=== PATIENT | female | born 1980 | race Caucasian/White ===

== ENCOUNTER 2022-06-23 13:26 | Outpatient (REF) | payer MEDICAID, SELFPAY ==
[2022-06-23 15:25] LABS: HGB 14.3 g/dL (11.2-15.7); MCH 30.1 pg (27.0-33.0); MCV 88 fL (80-95); MPV 11.2 fL (8.0-11.0); Platelet Count 208 10^3/uL (130-400); RBC 4.75 10^6/uL (3.93-5.22); RDW 11.6 % (11.7-14.6); WBC 6.84 10^3/uL (4.4-10.8)
[2022-06-23 16:09] LABS: ALT 29 U/L (14-59); AST 26 U/L (15-37); Albumin 4.2 g/dL (3.4-5.0); Alkaline Phosphatase 79 U/L (46-116); Anion Gap 8.1 mmol/L (3-11); BUN 19 mg/dL (7-18); Bilirubin, Total 0.6 mg/dL (0.2-1.0); CO2 27.9 mmol/L (21.0-32.0); CREATININE 0.7 mg/dL (0.55-1.02); Calcium 8.9 mg/dL (8.5-10.1); Calculated LDL 98 mg/dL (<100); Chloride 103 mmol/L (98-107); Cholesterol 191 mg/dL (<200); Glucose 151 mg/dL (74-106); HDL Cholesterol 62 mg/dL (40-60); Potassium 4.4 mmol/L (3.5-5.1); Sodium 139 mmol/L (136-145); Total Protein 7.7 g/dL (6.4-8.2); Triglyceride 157 mg/dL (<150)
== END 2022-06-23 13:27 | disposition home or self-care (01) ==
LOC: NCHCN 13:26
PROVIDERS: PCP Family Medicine; Visit Provider Family Medicine
DX: Z13.29 Encounter for screening for other suspected endocrine disorder (principal); Z13.220 Encounter for screening for lipoid disorders; Z00.00 Encounter for general adult medical examination without abnormal findings; Z13.0 Encounter for screening for diseases of the blood and blood-forming organs and certain disorders involving the immune mechanism; Z13.228 Encounter for screening for other metabolic disorders
CPT/HCPCS: 80053; 80061; 85027; 84443

== ENCOUNTER 2023-02-20 17:43 | Outpatient (REF) | payer SELFPAY ==
[2023-02-20 21:25] LABS: Abs Immature Grans 0.02 10^3/uL (0.0-0.06); Absolute Basophil Count 0.08 10^3/uL (0.0-0.2); Absolute Eosinophil Count 0.16 10^3/uL (0.0-0.7); Absolute Lymphocyte Count 3.02 10^3/uL (1.2-3.4); Absolute Monocyte Count 0.49 10^3/uL (0.1-0.8); Absolute Neutrophil Count 3.32 10^3/uL (1.2-6.7); Basophils % 1.1; Eosinophils % 2.3; HCT 39.8 % (36.0-46.0); HGB 13.9 g/dL (11.2-15.7); Immature Grans % 0.3; Lymphocytes % 42.6; MCH 30.2 pg (27.0-33.0); MCHC 34.9 % (32.0-36.0); MCV 86 fL (80-95); MPV 11.5 fL (8.0-11.0); Monocytes % 6.9; Neutrophils % 46.8; Platelet Count 216 10^3/uL (130-400); RBC 4.61 10^6/uL (3.93-5.22); RDW 11.7 % (11.7-14.6); RDW-SD 36.9 fL; WBC 7.09 10^3/uL (4.4-10.8)
[2023-02-20 21:47] LABS: ALT 31 U/L (14-59); AST 17 U/L (15-37); Alkaline Phosphatase 88 U/L (46-116); Anion Gap 9.1 mmol/L (3-11); BUN 17 mg/dL (7-18); Bilirubin, Total 0.4 mg/dL (0.2-1.0); CO2 26.9 mmol/L (21.0-32.0); CREATININE 0.9 mg/dL (0.55-1.02); Calcium 9.4 mg/dL (8.5-10.1); Chloride 98 mmol/L (98-107); Estimated GFR 80.84 (mL/min/1.73m2); Glucose 275 mg/dL (74-106); Potassium 3.8 mmol/L (3.5-5.1); Sodium 134 mmol/L (136-145); TSH (W/Ref FT4) 1.65 uIU/mL (0.36-3.74); Total Protein 7.8 g/dL (6.4-8.2)
[2023-02-20 22:09] LABS: Hemoglobin A1C 8.4 % (<5.7)
[2023-02-20 22:23] LABS: COMMENT (LAB VIEW ONLY) 50.03 mg/dL; Microalb ug/mg Crea 5.8 ug/mg Cr
== END 2023-02-20 17:44 | disposition home or self-care (01) ==
LOC: NCHCN 17:43
PROVIDERS: PCP Family Medicine; Visit Provider Family Medicine
DX: Z00.00 Encounter for general adult medical examination without abnormal findings (principal); E11.9 Type 2 diabetes mellitus without complications; Z13.29 Encounter for screening for other suspected endocrine disorder
CPT/HCPCS: 80053; 82043; 82570; 83036; 84443; 85025

== ENCOUNTER 2024-07-28 15:15 | Outpatient (REF) | payer OTHER, SELFPAY ==
[2024-07-28 21:30] LABS: ALT 54 U/L (14-59); AST 30 U/L (15-37); Albumin 3.9 g/dL (3.4-5.0); Alkaline Phosphatase 129 U/L (46-116); Anion Gap 10.8 mmol/L (3-11); BUN 13 mg/dL (7-18); Bilirubin, Total 0.38 mg/dL (0.2-1.0); CO2 27.2 mmol/L (21.0-32.0); Calcium 9.6 mg/dL (8.5-10.1); Chloride 101 mmol/L (98-107); Estimated GFR 70.36 (mL/min/1.73m2); Glucose 381 mg/dL (74-106); Potassium 4.8 mmol/L (3.5-5.1); Sodium 139 mmol/L (136-145); Total Protein 8.2 g/dL (6.4-8.2)
== END 2024-07-28 15:16 | disposition home or self-care (01) ==
LOC: NCHCN 15:15
PROVIDERS: PCP Family Medicine; Visit Provider Family Medicine
DX: E11.9 Type 2 diabetes mellitus without complications (principal)
CPT/HCPCS: 80053

== ENCOUNTER 2024-09-08 12:36 | Outpatient (REF) | payer OTHER, SELFPAY ==
[2024-09-08 15:19] LABS: Abs Immature Grans 0.01 10^3/uL (0.0-0.06); Absolute Basophil Count 0.06 10^3/uL (0.0-0.2); Absolute Eosinophil Count 0.18 10^3/uL (0.0-0.7); Absolute Lymphocyte Count 2.51 10^3/uL (1.2-3.4); Absolute Monocyte Count 0.32 10^3/uL (0.1-0.8); Absolute Neutrophil Count 2.57 10^3/uL (1.2-6.7); Basophils % 1.1 %; Eosinophils % 3.2 %; HGB 15.3 g/dL (11.2-15.7); Immature Grans % 0.2 %; Lymphocytes % 44.4 %; MCH 29.7 pg (27.0-33.0); MCHC 34.8 % (32.0-36.0); MCV 85 fL (80-95); MPV 11.2 fL (8.0-11.0); Monocytes % 5.7 %; Neutrophils % 45.4 %; Platelet Count 207 10^3/uL (130-400); RBC 5.15 10^6/uL (3.93-5.22); RDW 11.8 % (11.7-14.6); RDW-SD 36.2 fL; WBC 5.65 10^3/uL (4.4-10.8)
[2024-09-08 16:10] LABS: ALT 52 U/L (14-59); AST 24 U/L (15-37); Albumin 4.4 g/dL (3.4-5.0); Alkaline Phosphatase 91 U/L (46-116); Anion Gap 11.1 mmol/L (3-11); BUN 10 mg/dL (7-18); Bilirubin, Total 0.6 mg/dL (0.2-1.0); CO2 25.9 mmol/L (21.0-32.0); CREATININE 0.7 mg/dL (0.55-1.02); Calcium 9.9 mg/dL (8.5-10.1); Calculated LDL 144 mg/dL (<100); Chloride 101 mmol/L (98-107); Cholesterol 265 mg/dL (<200); Estimated GFR 107.95 (mL/min/1.73m2); Glucose 335 mg/dL (74-106); HDL Cholesterol 71 mg/dL (>or=50); Potassium 4.4 mmol/L (3.5-5.1); Sodium 138 mmol/L (136-145); Total Protein 8.1 g/dL (6.4-8.2); Triglyceride 252 mg/dL (<150)
[2024-09-08 17:06] LABS: COMMENT (LAB VIEW ONLY) 96.01 mg/dL; Microalb ug/mg Crea 28.4 ug/mg Cr
== END 2024-09-08 12:37 | disposition home or self-care (01) ==
LOC: NCHCN 12:36
PROVIDERS: PCP Family Medicine; Visit Provider Family Medicine
DX: R53.83 Other fatigue (principal); Z13.220 Encounter for screening for lipoid disorders; E11.9 Type 2 diabetes mellitus without complications
CPT/HCPCS: 80053; 80061; 82043; 82570; 84443; 85025

== ENCOUNTER 2025-04-01 12:02 | Outpatient (REF) | payer BC, MEDICAID, SELFPAY | END 2025-04-01 12:03 | disposition home or self-care (01) | LOC: NCHCN 12:02 | PROVIDERS: PCP Family Medicine; Visit Provider Family Medicine | DX: R30.0 Dysuria (principal) | CPT/HCPCS: 87086 ==